=== PATIENT | male | born 1995 | race Caucasian/White ===

== ENCOUNTER 2019-02-13 09:16 | Emergency (ER) | payer OTHER ==
[~2019-02-13] VITALS: Ht 177.8 cm; Wt 112.0 kg
== END 2019-02-13 10:04 | disposition home or self-care (01) ==
LOC: ED 09:16
PROC: 0HQ0XZZ Repair Scalp Skin, External Approach (ICD-10-PCS; principal; 2019-02-13)
DX: S01.01XA Laceration without foreign body of scalp, initial encounter (principal); W22.8XXA Striking against or struck by other objects, initial encounter; Z87.891 Personal history of nicotine dependence
CPT/HCPCS: 12001; 99282-25

== ENCOUNTER 2019-05-07 09:37 | Emergency (ER) | payer OTHER ==
[~2019-05-07] VITALS: Ht 177.8 cm; Wt 112.0 kg
--- NOTE | 2019-05-08 17:10 | EKG ---
[facility] [address] [place], [place] [address] Signed Sinus bradycardia Cannot rule out Inferior infarct , age undetermined Abnormal ECG No previous ECGs available Confirmed by JUAN J RODRIGUEZ MD ([id number]) on 05/08/2019 5:10:34 PM Electronically Signed By: JUAN J RODRIGUEZ MD 05/08/19 1710 PATIENT NAME: JESÚS AWAN Electrocardiogram DATE OF : [birth year] PHYSICIAN: JUAN J RODRIGUEZ MD REPORT #: [id number] REPORT IS CONFIDENTIAL AND NOT TO BE RELEASED WITHOUT AUTHORIZATION
== END 2019-05-07 12:49 | disposition home or self-care (01) ==
LOC: ED 09:37
DX: I95.9 Hypotension, unspecified (principal); R00.1 Bradycardia, unspecified; F17.200 Nicotine dependence, unspecified, uncomplicated
CPT/HCPCS: 36415; 71045; 80053; 81001; 83735; 84484; 85025; 93005; 93010; 96360; 99284-25; J7030

== ENCOUNTER 2020-05-02 17:37 | Emergency (ER) | payer OTHER ==
[~2020-05-02] VITALS: Ht 177.8 cm; Wt 122.5 kg
[2020-05-02] MEDS ORDERED: AUGMENTIN 875-1 EACH PO (22:12)
[2020-05-02] MEDS ORDERED: PREDNISONE20 MG PO (22:12)
[2020-05-02] MEDS ORDERED: HYDROCODON-ACE1 EA10 PO (22:12)
== END 2020-05-02 22:51 | disposition home or self-care (01) ==
LOC: ED 17:37
DX: J36 Peritonsillar abscess (principal); F17.200 Nicotine dependence, unspecified, uncomplicated; Z88.8 Allergy status to other drugs, medicaments and biological substances
CPT/HCPCS: 70491; 85025; 86308; 87880; 99283-25; J1100; J1170; J2405; J7030; Q9967